=== PATIENT | female | born 1960 | race Caucasian/White ===

== ENCOUNTER → 2016-12-20 | Outpatient (CLI) | payer MEDICAID ==
[~2016-12-20] MED LIST: ACETAMINOPHEN500 M3 PO; ANORO ELLIPTA1 POW IH; ASPIRIN 81MG TA81 MG PO; CHANTIX1 TAB PO; LIPITOR40 MG PO; MELOXICAM15 MG PO; METFORMIN 500M500 MG PO; MIRALAX(PO17 GM/1 PA PO; OMEPRAZOLE40 MG PO
--- NOTE | 2016-12-25 09:46 | RADIOLOGY REPORT PS360 ---
DIG MAMM-DX LONG W/AVWS W/CAD US BREAST-LT COMPLETE W/AXILLA, ORDERING PHYSICIAN : [facility] PATIENT AGE: 56 years GENDER: Female INDICATION: PT FEELS LT BREAST palpable area 9:00 lateral left breast Thus order changed from the screening] diagnostic mammogram ... DIG MAMM-DX LONG W/AVWS W/CAD... COMPARISON: None no previous breast studies TECHNIQUE: MLO cc views both breast along with spot views of palpable area left breast and spot views density right breast FINDINGS: . Minimal scattered fibroglandular elements bilaterally. Overall lower density breast. RIGHT BREAST.: Areas of minimal density seen just lateral to the nipple on initial cc view were further evaluated with spot views and appear to dissipate & compress out for the most part. . Also areas of density seen at the superior breast MLO view compresses out as do areas density deep central breast compress out and not of concern... No areas of significant concern right breast after additional spot views LEFT BREAST: the palpable area is located at medial left breast at 9 o'clock position and marked with skin marker.. No significant findings here with additional spot views. Only some minimal asymmetric glandular tissue appearing structures. However ultrasound will be performed to further evaluate this palpable area a ...... US BREAST-LT COMPLETE W/AXILLA,... TECHNIQUE: Ultrasound entire breast including axillary survey COMPARISON: Mammogram from today FINDINGS Survey of the left breast reveals no cyst nor solid nodule . Specific attention is directed to the palpable area at 9:00 and there are no areas of concern here with ultrasound. Benign Axillary lymph node measuring 1.2 cm IMPRESSION: Left breast. The palpable area at left breast shows no areas of significant concern on either mammography or subsequent ultrasound. Right breast. Areas of minimal asymmetric density lateral to the nipple at the far anterior right breast is of less concern and seems to compress out problem-solving spot view submitted in the can be followed Recommend bilateral follow-up study in not over one year.. . Self breast examination should be encouraged BI-RADS CATEGORY: 2_Benign RECOMMENDED FOLLOWUP: 10 -12 MONTH FOLLOW-UP (A letter has been sent to the patient regarding results of the study.)
== END ==
LOC: RAD 08:17
DX: Z12.31 Encounter for screening mammogram for malignant neoplasm of breast (principal)
CPT/HCPCS: G0204

== ENCOUNTER → 2017-02-18 | Outpatient (CLI) | payer MEDICAID ==
[~2017-02-18] VITALS: Ht 167.6 cm; Wt 109.8 kg
[~2017-02-18] MED LIST changes: +INVOKANA300 MG PO; +LOPRESSOR 25MG.25 MG PO
== END ==
LOC: DIETICIAN 13:47
DX: E11.65 Type 2 diabetes mellitus with hyperglycemia (principal); Z71.3 Dietary counseling and surveillance